=== PATIENT | male | born 1965 | race Caucasian/White ===

== ENCOUNTER 2019-01-01 10:40 | Outpatient (CLI) | payer BC ==
--- NOTE | 2019-01-01 10:59 | RAD ---
4 views of the cervical spine: 01/01/2019 COMPARISON: None HISTORY: Cervical degenerative disc disease, neck pain FINDINGS: The lateral examination demonstrates normal vertebral body height and alignment. Mild disc space narrowing noted at C3-4, C5-6, and C6-7, with mild associated anterior osteophyte formation. No prevertebral soft tissue swelling is seen. Swimmer's lateral view demonstrates normal alignment at the cervicothoracic junction. Open-mouth odontoid view demonstrates a normal-appearing dens and C1-2 articulation. IMPRESSION: Cervical spine degenerative change. No acute osseous abnormality.
== END 2019-01-01 10:41 | disposition home or self-care (01) ==
LOC: TBSIIMAG 10:40
PROVIDERS: ATTEND Neurological Surgery
DX: M50.30 Other cervical disc degeneration, unspecified cervical region (principal); M47.812 Spondylosis without myelopathy or radiculopathy, cervical region
CPT/HCPCS: 72040